=== PATIENT | male | born 1940 | race Caucasian/White ===

== ENCOUNTER 2020-05-12 15:32 | Emergency (ER) | payer MEDICARE, OTHER ==
[~2020-05-12] VITALS: Ht 177.8 cm; Wt 77.1 kg
--- NOTE | 2020-05-12 15:51 | NUR ---
PT STATES HE IS UNABLE TO URINATE FOR 24 HOURS. FIRM, TENDER, AND DISTENDED TO PALPATION ON SUPRAPUBIC AREA. DENIES HX OF BPH OR TRUMA. DENIES N/V/D; SKIN IS PINK/WARM/DRY; AAOX4 WITH EVEN AND STEADY GAIT; PT DENIES ANY FEVER, CP, SOB, OR COUGH AT THIS TIME; PATIENT STATES PAIN OF 10/10 AT THIS TIME; VSS; PATIENT POSITIONED FOR COMFORT; HOB ELEVATED; BEDRAILS UP X2; BED DOWN. ER MD MADE AWARE OF PT STATUS.
--- NOTE | 2020-05-12 16:25 | NUR ---
#16 WHEELER CATHETHER INSERTED ON PT. PT TOLERATED WELL. 600ML NIR/HAZY URINE OUT PUT.
[2020-05-12 17:40] VITALS: BP 151/91
--- NOTE | 2020-05-12 17:40 | NUR ---
Patient discharged with v/s stable. Written and verbal after care instructions given and explained. Patient alert, oriented and verbalized understanding of instructions. Ambulatory with steady gait. All questions addressed prior to discharge. ID band removed. Patient advised to follow up with PMD. Rx of Tylenol and Keflex given. Patient educated on indication of medication including possible reaction and side effects. Opportunity to ask questions provided and answered.
== END 2020-05-12 17:40 | disposition home or self-care (01) ==
LOC: MED 15:32
DX: R33.9 Retention of urine, unspecified (principal); N39.0 Urinary tract infection, site not specified; I10 Essential (primary) hypertension; R73.03 Prediabetes
CPT/HCPCS: 51702; 81002; 87086; 87186; 99284; J7030

== ENCOUNTER 2020-05-14 14:40 | Emergency (ER) | payer MEDICARE, OTHER ==
[~2020-05-14] VITALS: Ht 177.8 cm; Wt 77.1 kg
[2020-05-14 14:43] VITALS: BP 117/74
--- NOTE | 2020-05-14 15:02 | NUR ---
seen 05/12/20 for urinary retension---aceves to leg bag placed--- pt c/o burning sensation to meatus and hematuria today---dark dillan urine noted to leg bag
[2020-05-14 15:20] LABS: APPEARANCE,URINE BLOODY (CLEAR); BILIRUBIN,URINE NEGATIVE (NEGATIVE); BLOOD, URINE 3+ (NEGATIVE); COLOR,URINE RED (YELLOW); LEUKOCYTE ESTERASE ,URINE TRACE (NEGATIVE); NITRITE, URINE POSITIVE (NEGATIVE); UGLUCOSE NEGATIVE (NEGATIVE)
[2020-05-14 15:35] LABS: RBC,URINE >100 /HPF (0-5); WBC,URINE 0-5 /HPF (0-5)
[2020-05-14 15:48] VITALS: BP 117/74
--- NOTE | 2020-05-14 15:49 | NUR ---
Patient discharged with v/s stable. Written and verbal after care instructions given and explained. Patient alert, oriented and verbalized understanding of instructions. Ambulatory with steady gait. All questions addressed prior to discharge. ID band removed. Patient advised to follow up with PMD. Rx of bacitracin/bactrim ds/tamsulosin given. Patient educated on indication of medication including possible reaction and side effects. Opportunity to ask questions provided and answered.
== END 2020-05-14 15:49 | disposition home or self-care (01) ==
LOC: MED 14:40
DX: T83.198A Other mechanical complication of other urinary devices and implants, initial encounter (principal); N39.0 Urinary tract infection, site not specified; N40.0 Benign prostatic hyperplasia without lower urinary tract symptoms
CPT/HCPCS: 81001; 99283

== ENCOUNTER 2020-11-03 09:56 | Emergency (ER) | payer MEDICARE, SELFPAY ==
[~2020-11-03] VITALS: Ht 177.8 cm; Wt 81.6 kg
[2020-11-03 10:02] VITALS: BP 135/68
--- NOTE | 2020-11-03 10:27 | NUR ---
80 YEAR OLD MALE COMPLAINS OF UPPER BACK PAIN A RESULT OF FALL X 1 WEEK. PAIN CONTINUOUS 5/10, DULL, RADITAES TO POSTERIOR HEAD, NECK, UPPER BACK, BILATERAL SHOULDERS, AND BILATERAL ARMS. PATIENT STATED FEELING OF DIZZINESS PRIOR TO FALLING, HITTING HEAD CAUSING NECK TO BEND FORWARD, AND "BLACKING OUT" AFTER. PATIENT DENIES NAUSEA/VOMITING AFTER FALL. PATIENT DENIES OPEN WOUNDS/BLEEDING RESULT OF FALL; NO APPARENT OPEN WOUNDS ON HEAD/NECK/BACK/SHOULDERS NOTED. PERRLA NOTED. AO4, BREATHING EVEN AND UNLABORED, SKIN WARM AND DRY. BED IN LOWEST POSITION, LOCKED, X1 SIDERAIL UP. PMH - HTN, HDL NKA
--- NOTE | 2020-11-03 10:35 | NUR ---
PATIENT ON MONITOR
[2020-11-03 10:47] LABS: BASOPHILS % (AUTO) 0.3 % (0.0-2.0); EOSINOPHILS % (AUTO) 0.2 % (0.0-4.0); HEMATOCRIT 39.6 % (36-52); HEMOGLOBIN 13.4 g/dL (12.0-18.0); LYMPHOCYTES % (AUTO) 17.8 % (20.5-51.1); MEAN CORPUSCULAR HEMOGLOBIN 30 pg (27-31); MEAN CORPUSCULAR HGB CONC 34 g/dL (33-37); MEAN CORPUSCULAR VOLUME 89.1 fL (80-94); MONOCYTES # (AUTO) 0.6 K/uL (0.8-1.0); MONOCYTES % (AUTO) 10.7 % (1.7-9.3); NEUTROPHILS # (AUTO) 3.9 K/uL (1.8-7.7); PLATELET COUNT (AUTO) 217 K/uL (140-450); RED BLOOD CELL COUNT(AUTO) 4.44 MIL/uL (4.20-6.10); RED CELL DISTRIBUTION WIDTH 14.2 % (11.6-13.7); WHITE BLOOD COUNT (AUTO) 5.6 K/uL (4.8-10.8)
[2020-11-03 10:55] LABS: CARBON DIOXIDE 29.5 mmol/L (21-32); CHLORIDE 103 mmol/L (98-107); CREATININE 1.3 mg/dL (0.6-1.3); GLUCOSE 149 mg/dL (74-106); POTASSIUM 4.5 mmol/L (3.5-5.1); SODIUM SERUM 141 mmol/L (136-145); UREA NITROGEN, BLOOD 19 mg/dL (7-18)
--- NOTE | 2020-11-03 11:25 | NUR ---
PATIENT NECK STABILIZED, EMT PUT PATIENT ON C-COLLAR. PATIENT TOLERATED WELL. CAP REFILL <3 SECONDS, PEDAL/RADIAL PULSES PRESENT, PATIENT ABLE TO WIGGLE ALL TOES/FINGERS, SENSATION INTACT. WILL CONTINUE TO MONITOR.
[2020-11-03 11:48] LABS: PROTHROMBIN TIME 10.2 secs (10.8-13.4)
--- NOTE | 2020-11-03 12:30 | NUR ---
NECK REMAINS STABILIZED IN C COLLAR. RADIAL PULSE +3 BILATERAL, PEDAL PULSE +2 BILATERAL, NORMAL STRENGTH, SENSATION INTACT.
--- NOTE | 2020-11-03 12:42 | NUR ---
SPOKE TO DAUGHTER CHRISTELLE REGARDING UPDATES ON PATIENT. DAUGHTER TO COME AND DROP OFF PATIENT BELONGINGS.
[2020-11-03] MEDS ORDERED: KETOROLAC 15 MG/ML VIAL IVP ONE (12:45)
[2020-11-03] MEDS ORDERED: MORPHINE SULFATE 4 MG/ML SYR IVP ONE (12:45)
--- NOTE | 2020-11-03 13:30 | NUR ---
NECK REMAINS STABILIZED IN C COLLAR. RADIAL PULSE +3 BILATERAL, PEDAL PULSE +2 BILATERAL, NORMAL STRENGTH, SENSATION INTACT.
--- NOTE | 2020-11-03 13:40 | NUR ---
KATE SWAB SENT TO LAB
--- NOTE | 2020-11-03 14:15 | NUR ---
Patient to be transferred to [facility]. Is being transferred due to HIGHER LEVEL OF CARE. Receiving facility has accepting physician and available space. ER physician has signed transfer form. Patient or responsible libertarian has agreed to transfer and signed form. Patient belongings inventoried and will be sent with patient. Copy of nursing notes, lab reports, EKG, Physicians Orders and X-rays to be sent with patient. Report called to RN at receiving facility. [facility] ambulance service has been called for transfer. ETA is 15 MINS.
--- NOTE | 2020-11-03 14:30 | NUR ---
NECK REMAINS STABILIZED IN C COLLAR. RADIAL PULSE +3 BILATERAL, PEDAL PULSE +2 BILATERAL, NORMAL STRENGTH, SENSATION INTACT.
--- NOTE | 2020-11-03 14:50 | NUR ---
PER ALEXANDRA OKAY TO TRANSFER PT WITHOUT URINE
--- NOTE | 2020-11-03 14:56 | NUR ---
[facility] AT BEDSIDE
--- NOTE | 2020-11-03 15:01 | NUR ---
[facility] TOOK PT AT THIS TIME.
[2020-11-03 15:18] VITALS: BP 136/119
== END 2020-11-03 15:01 | disposition designated cancer center or children's hospital (05) ==
LOC: MED 09:56
DX: S12.500A Unspecified displaced fracture of sixth cervical vertebra, initial encounter for closed fracture (principal); I48.91 Unspecified atrial fibrillation; R55 Syncope and collapse; I10 Essential (primary) hypertension; Z20.822 Contact with and (suspected) exposure to COVID-19; W18.39XA Other fall on same level, initial encounter; Y93.89 Activity, other specified; Y92.89 Other specified places as the place of occurrence of the external cause; Y99.8 Other external cause status
CPT/HCPCS: 36415; 71045; 72125; 80048; 84484; 85025; 85610; 85730; 87426; 93005; 96374; 96375; 99285; G0482; J1885; J2270

== ENCOUNTER 2020-11-26 10:44 | Emergency (ER) | payer MEDICARE, SELFPAY ==
[~2020-11-26] VITALS: Ht 177.8 cm; Wt 78.0 kg
[2020-11-26 10:47] VITALS: BP 82/62
--- NOTE | 2020-11-26 10:50 | NUR ---
Pt ambulated to ER bed 5 with cane.
--- NOTE | 2020-11-26 11:05 | NUR ---
80 y/o M brought in by daughter with c/c recheck s/p neck surgery. Patient states he was seen here 3 weeks ago and was diagnosed with a fractured neck, completed rehab last week. Patient stated sarah were removed this Thursday11/20/20. This morning, patient was seen by home health nurse who noted active bleeding at the incision sight during the dressing change. Patient states the home health nurse stated "there's a big gap that's deep to the bone." Incision site was changed and rebandaged by home health nurse prior to arrival. Bleeding is controlled, no drainage noted. Patient states pain 11/21, which he took a Tylenol this morning prior to arrival. Patient denies dizziness, blurry vision, weakness, CP/SOB, fever/chills, cold-like symptoms. ekg monitor in place. Patient presents with BP 116/78, SPO2 100% on room air, RR 16, HR 98 BPM. Bed locked in lowest position, side rails x 1, call light in reach. PMH: HTN, Pre-DM, HLD Meds: Unable to obtain NKA Sx: Neck surgery, Elbow sx 30 yrs ago
[2020-11-26 12:07] VITALS: BP 94/64
--- NOTE | 2020-11-26 12:08 | NUR ---
Patient discharged with v/s stable. Written and verbal after care instructions given and explained. Patient verbalized understanding. Ambulatory with steady gait. All questions addressed prior to discharge. Advised to follow up with PMD.
== END 2020-11-26 12:08 | disposition home or self-care (01) ==
LOC: MED 10:44
DX: S31.000A Unspecified open wound of lower back and pelvis without penetration into retroperitoneum, initial encounter (principal); E11.9 Type 2 diabetes mellitus without complications; I10 Essential (primary) hypertension; E78.5 Hyperlipidemia, unspecified; Z98.890 Other specified postprocedural states; Y83.9 Surgical procedure, unspecified as the cause of abnormal reaction of the patient, or of later complication, without mention of misadventure at the time of the procedure; Y93.89 Activity, other specified; Y92.89 Other specified places as the place of occurrence of the external cause; Y99.8 Other external cause status
CPT/HCPCS: 99281